=== PATIENT | female | born 1985 | race American Indian/Alaskan Native ===

== ENCOUNTER 2021-10-19 20:16 | Emergency (ER) | payer OTHER ==
--- NOTE | 2021-10-19 20:31 | ED Physician Documentation ---
PD HPI DYSPNEA - Stated complaint Stated Complaint: SOA,CHEST PX - Chief complaint Chief Complaint: Resp - History obtained from History obtained from: Patient - History of Present Illness Timing - onset: How many hours ago (1 1/2) Timing - onset during: Light activity Timing - details: Abrupt onset, Still present Inciting event(s): Out of meds, Exposure (ie smoke) (visiting from [place] and feels the environment here on [place] triggered asthma. Did not have Albuterol MDI with her.). No: URI Worsened by: Coughing Associated symptoms: Wheezing. No: Fever, Cough, Bilateral edema Similar symptoms before: Diagnosis (asthma with intermittent symptoms. Usually improved with Albuterol. Not on daily meds/inhaler.) Recently seen: Not recently seen Review of Systems Constitutional: denies: Fever, Chills Nose: denies: Rhinorrhea / runny nose, Congestion Throat: denies: Sore throat Cardiac: reports: Chest pain / pressure (soreness in chest with cough. not with regular breaths.) Respiratory: reports: Dyspnea, Cough, Wheezing GI: denies: Nausea, Vomiting, Diarrhea Skin: denies: Rash PD PAST MEDICAL HISTORY - Past Medical History Cardiovascular: None Respiratory: Asthma Endocrine/Autoimmune: None - Present Medications Home Medications: Ambulatory Orders Medication Instructions Recorded Confirmed Albuterol Sulf [Ventolin Hfa 10/19/21 Inhaler] Albuterol Sulf [Ventolin Hfa 2 - 3 puffs INH Q4HR PRN #1 inhaler 10/19/21 Inhaler] Cetirizine [ZyrTEC] 10 mg PO DAILY #15 tablet 10/19/21 dexAMETHasone [Decadron] 4 mg PO DAILY #5 tablet 10/19/21 - Allergies Allergies/Adverse Reactions: Allergies Allergy/AdvReac Type Severity Reaction Status Date / Time cephalexin AdvReac Nausea Verified 10/19/21 20:32 PD ED PE NORMAL - Vitals Vital signs reviewed: Yes - General General: Alert and oriented X 3, Well developed/nourished - HEENT HEENT: Pharynx benign (no edema of uvula.) - Neck Neck: Supple, no meningeal sign, No adenopathy - Cardiac Cardiac: RRR, No murmur - Respiratory Respiratory: No: Clear bilaterally (bilateral expiratory wheezing. ) - Abdomen Abdomen: Soft, Non tender - Derm Derm: Normal color, Warm and dry - Extremities Extremities: No edema, No calf tenderness / cord - Neuro Neuro: Alert and oriented X 3, No motor deficit, Normal speech Results - Vitals Vitals: Vital Signs - 24 hr 10/19/21 10/19/21 10/19/21 20:24 20:46 21:33 Temperature 36.2 C L Heart Rate 98 85 92 Respiratory 19 18 18 Rate Blood Pressure 124/80 O2 Saturation 100 10/19/21 21:46 Temperature Heart Rate 80 Respiratory 18 Rate Blood Pressure 134/76 H O2 Saturation 98 Oxygen O2 Source Room air PD MEDICAL DECISION MAKING - ED course Complexity details: re-evaluated patient (feling improved with nebs x 2. Can Rx MDI. ), considered differential (exac of asthma. ), d/w patient Departure - Departure Disposition: 01 Home, Self Care Clinical Impression: Exacerbation of asthma Qualifiers: Asthma severity: mild Asthma persistence: intermittent Qualified Code(s): J45.21 - Mild intermittent asthma with (acute) exacerbation Condition: Stable Record reviewed to determine appropriate education?: Yes Prescriptions: Albuterol Sulf [Ventolin Hfa Inhaler] 2 - 3 puffs INH Q4HR PRN #1 inhaler PRN Reason: Shortness Of Air/Wheezing dexAMETHasone [Decadron] 4 mg PO DAILY #5 tablet Cetirizine [ZyrTEC] 10 mg PO DAILY #15 tablet Comments: Unfortunately we do not have inhalers to give out as prepacks because of the multidose nature of it is against [place] guidelines. I wrote a prescription for the albuterol inhaler as well as Decadron steroid for 5 days and cetirizine antihistamine daily for a couple of weeks. This is in case it is environmental allergies. I transmitted your prescriptions to [facility] pharmacy which should be open from 11-6 tomorrow Thursday. Return if worse again overnight Discharge Date/Time: 10/19/21 21:46
[2021-10-19] MEDS ORDERED: CHERRY SYRUP 10 ML UDC PO ONE (20:42)
[2021-10-19] MEDS ORDERED: diphenhydrAMINE ELIXIR 25 MG/10 ML UDC PO STA (20:42)
[2021-10-19] MEDS ORDERED: DEXAMETHASONE 10 MG/ML VIAL PO STA (20:42)
[2021-10-19] MEDS ORDERED: ALBUTEROL NEB 2.5 MG/3 ML INH STA ×2 (20:45→21:27)
[2021-10-19] MEDS ORDERED: ALBUTEROL NEB 2.5 MG/3 ML INH ONE (20:49)
[2021-10-19 21:47] VITALS: BP 134/76
== END 2021-10-19 21:46 | disposition home or self-care (01) ==
LOC: ED 20:16
DX: J45.21 Mild intermittent asthma with (acute) exacerbation (principal)
CPT/HCPCS: 93005; 94640; 94664; 99284; A9270